=== PATIENT | female | born 1975 | race Caucasian/White ===

== ENCOUNTER 2022-05-13 07:47 | Outpatient (CLI) | payer OTHER, SELFPAY ==
--- NOTE | 2022-05-13 08:15 | CRLHL7_ITS ---
For Patients: As a result of the Century Cures Act, medical imaging exams and procedure reports are released immediately into your electronic medical record. You may view this report before your referring provider. If you have questions, please contact your health care provider. BILATERAL SCREENING MAMMOGRAM WITH COMPUTER-AIDED DETECTION AND TOMOSYNTHESIS TECHNIQUE: CC and MLO views were obtained. These mammographic images have been obtained using full-field digital technique. These mammographic images were interpreted with the benefit of computer-aided detection. Breast Tomosynthesis was used in this interpretation. COMPARISON FILM: 05/12/21, 01/02/20, 01/05/18. FINDINGS: There are scattered areas of fibroglandular density. IMPRESSION: There is no radiographic evidence for malignancy. ASSESSMENT: BI-RADS Category 2: Benign RECOMMENDATION: Routine screening mammogram in 1 year. A lay language report of this examination will be provided to the patient. Jerry Blackwood M.D. Diagnostic Radiologist [email or web address] Transcribed: 3:48 pm DW/Dictated by: Jerry Blackwood MD @ 05/13/2022 9:28:00 AM (Electronically Signed)
== END 2022-05-13 07:48 | disposition home or self-care (01) ==
LOC: MAMMO 07:48
PROVIDERS: Visit Provider Family Medicine
DX: Z12.31 Encounter for screening mammogram for malignant neoplasm of breast (principal); R92.2 Inconclusive mammogram
CPT/HCPCS: 77063; 77067

== ENCOUNTER 2023-03-14 16:46 | Outpatient (CLI) | payer OTHER, SELFPAY | END 2023-03-14 16:47 | disposition home or self-care (01) | LOC: NFLDREF 03-16 06:51 | PROVIDERS: Visit Provider Family Medicine | DX: E11.9 Type 2 diabetes mellitus without complications (principal); E88.81 Metabolic syndrome and other insulin resistance; I10 Essential (primary) hypertension; E78.5 Hyperlipidemia, unspecified; F32.A Depression, unspecified; F41.9 Anxiety disorder, unspecified; K21.9 Gastro-esophageal reflux disease without esophagitis; K85.90 Acute pancreatitis without necrosis or infection, unspecified; K76.0 Fatty (change of) liver, not elsewhere classified | CPT/HCPCS: 80053; 80061; 83690 ==

== ENCOUNTER 2023-05-02 18:35 | Emergency (ER) | payer OTHER, SELFPAY ==
[2023-05-02 18:47] VITALS: BP 131/103; PULSE 86; RESP 18; TEMP 37.1; O2SAT 98; BMI 31.5
--- NOTE | 2023-05-02 19:05 | ED_ITS ---
HPI - Abdominal Pain General Time Seen by Provider: 19:05 Date Seen: 05/02/23 Chief Complaint: Abdominal Pain Stated Complaint: Really bad menstrual cramps Time Seen by Provider: 05/02/23 18:38 Source: patient and RN notes reviewed Mode of arrival: ambulatory Limitations: no limitations History of Present Illness HPI narrative: This 48-year-old female is coming in with right-sided abdominal pain. She started with a menstrual cycle on , small amount of bleeding. She had a uterine ablation about 8 years ago. For the 1st your so she had no menstrual cycles but after that started having light bleeding and severe cramping for about 18-24 hours with her menstrual cycles. She is known to have cervical stenosis, her doctor did try to do an in office dilation which was extremely painful and did not work. She recently started on control pills to not have a menstrual cycle during her upcoming wedding in about a month. She completed 1 cycle of the pills but omitted the withdrawal. , started the back to back pills. She did have bleeding despite doing this. She also started Ozempic about 6 weeks ago and last week, 5 days ago, increase the dose to 0.5 mg weekly. She had a cholecystectomy in 2013 and suffered from chronic diarrhea since then. However, the Ozempic decreased her diarrhea to the point she became constipated this week in. She did take a laxative in Tuesday with good relief. She does not feel like she has got ongoing constipation. Her sister has had her appendix out. It is Tuesday and patient is had painful symptoms since . There has been no fevers. No nausea or vomiting. No urinary symptoms. No history of kidney stones. Related Data Previous Rx's Medication Instructions Recorded atorvastatin 20 mg tablet 20 mg PO QHS #90 tabs 03/14/23 citalopram 40 mg tablet 40 mg PO QDAY #90 tabs 03/14/23 glipizide 5 mg tablet, extended 5 mg PO QDAY #90 tabs 03/14/23 release 24 hr lisinopril 5 mg tablet 5 mg PO QDAY #90 tabs 03/14/23 omeprazole 20 mg capsule,delayed 20 mg PO BID #90 caps 03/14/23 release norgestimate-ethinyl estradiol 1 tab PO ONCE #84 tabs 03/28/23 0.18 mg/0.215mg/0.25mg-35 mcg(28)tablet (Ortho Tri-Cyclen (28)) semaglutide 0.25 mg or 0.5 mg (2 0.5 mg (0.8 mL) subcut QWEEK 4 04/25/23 mg/3 mL) subcutaneous pen injector weeks #3.2 mL (Ozempic) Allergies Allergy/AdvReac Type Severity Reaction Status Date / Time cephalexin [From Keflex] Allergy Severe Anaphylaxis Verified 04/25/23 15:41 Penicillins Allergy Severe Rash Verified 04/25/23 15:41 amoxicillin Allergy Mild Rash Verified 04/25/23 15:41 clavulanic acid Allergy Mild Abdominal Verified 04/25/23 15:41 [From Augmentin] Pain erythromycin base Allergy Unknown feel awful Verified 04/25/23 15:41 [facility] Medical History (Updated 05/02/23 @ 21:50 by Ciara Campbell MD) Mass of left breast ?N63.20 - Unspecified lump in the left breast, unspecified quadrant (ICD-10) Encounter for screening for malignant neoplasm of breast ?Z12.39 - Encounter for other screening for malignant neoplasm of breast (ICD-10) Encounter for routine history and physical examination of adult ?Z00.00 - Encounter for general adult medical examination without abnormal findings (ICD-10) Chronic streptococcal tonsillitis ?J35.01 - Chronic tonsillitis (ICD-10) ?J03.00 - Acute streptococcal tonsillitis, unspecified (ICD-10) Surgical History History of umbilical hernia repair ?Z98.890 - Other specified postprocedural states (ICD-10) ?Z87.19 - Personal history of other diseases of the digestive system (ICD-10) History of tubal ligation ?Z98.51 - Tubal ligation status (ICD-10) History of tonsillectomy ?Z90.89 - Acquired absence of other organs (ICD-10) History of pubovaginal sling ?Z96.0 - Presence of urogenital implants (ICD-10) History of endometrial ablation ?Z98.890 - Other specified postprocedural states (ICD-10) History of cholecystectomy ?Z90.49 - Acquired absence of other specified parts of digestive tract (ICD- 10) History of bunionectomy ?Z98.890 - Other specified postprocedural states (ICD-10) Family History (Updated 03/10/23 @ 09:18 by Rena Dewtit) Aunt Breast cancer Paternal Grandmother Breast cancer Ovarian cancer Social History (Updated 03/10/23 @ 09:18 by Rena Dewitt) Narrative: Has 2 children Rarely consumes alcohol Smoking Status: Current some day smoker What tobacco products do you use: cigarettes Do you use any of these nicotine containing products: None Second hand tobacco smoke exposure: No How often do you have a drink containing alcohol: monthly or less How many standard drinks containing alcohol do you have on a typical day: 1 or 2 How often do you have six or more drinks on one occasion: Never AUDIT-C Alcohol total score: 1 Non-prescribed substance use: marijuana (any form) Non-prescribed substance use details: due to pain and needing to sleep. Little interest or pleasure in doing things: not at all Feeling down, depressed, or hopeless: not at all service: No Exam Const: Vital Signs, click to edit/add: Vital Signs - 24 hr 05/02/23 18:47 05/02/23 20:20 Temperature 98.8 F Pulse Rate [Pulse Oximeter] 86 66 Respiratory Rate 18 18 Blood Pressure [Le ft Upper Arm] 131/103 H 140/91 H Pulse Oximetry 98 97 Oxygen Delivery Me thod Room Air Room Air Documenting provider has reviewed patient's vital signs: yes Common normals: no apparent distress, oriented x3, no limitations, healthy appearing, alert and well nourished General appearance: cooperative, comfortable, well kempt and well developed Nutritional appearance: overweight HENMT: Common normals: normocephalic, head/scalp atraumatic, hearing grossly normal bilaterally and external nose normal Head and scalp: normocephalic and atraumatic Face and sinus: normal facial exam Nose: external nose normal Eye: Common normals: PERRL, EOMs intact bilaterally, conjunctivae normal and no scleral icterus Conjunctiva: conjunctiva(e) normal Pupil: PERRL Neck & C-Spine: Common normals: full ROM, no lymphadenopathy, supple, no JVD and thyroid normal Thyroid: thyroid normal Resp: Common normals: normal respiratory effort, no retractions, no use of accessory muscles and clear to auscultation bilaterally Effort & inspection: able to speak in complete sentences Auscultation: clear to auscultation bilaterally Cardio: Common normals: no JVD, regular rate, regular rhythm, S1 normal heart sound, S2 normal heart sound, no gallops, no clicks and no murmurs Rate: regular rate Rhythm: regular rhythm Heart sounds: S1 normal and S2 normal GI: Common normals: Normal to inspection, nondistended, normoactive bowel sounds present, soft to palpation, no hepatosplenomegaly and no masses Palpation: soft and no hepatosplenomegaly Other: Mild tenderness more mid right sided abdomen without rebound or guarding. Neuro: Common normals: oriented x3 Sensorium/orientation: alert Psych: Appearance: well kempt Course Course Hospital Course: Patient is less likely to have ovarian issues likes this being on control. She could have retained fluid in the uterus from menstrual cycle and failed contraceptive regulation or contraceptives causing irregularities with her menstrual cycle with initiation. With cervical stenosis she certainly could be retaining fluid in the uterus causing significant pain. I have also seen was them pick cause GI symptoms and abdominal pain. Constipation is in the differential, will do flat and upright to look at that. Will get pelvic ultrasound as well. We will get baseline labs. I do think this is less likely appendicitis given the time frame of her symptoms in the length of her symptoms but will still consider that. She understands we may need to proceed with CT abdominal imaging. Will try some Toradol to see if this helps for pain management. Reevaluation(s) Time of Reevaluation #1: 21:45 Reevaluation #1: Reviewed with patient that her ultrasound is showing probable adenomyosis which she could have significant pain with menses with this. Recommend follow up with OB Gyne. We did review that there was constipation on the abdominal x-ray. Labs are reassuring. At this time, will discharge to home. She felt the Toradol worked very good for her cramps. We can have her try some oral Toradol from [facility], 20 tabs prescribed. Vital Signs Vital signs: Initial Vital Signs Temperature 98.8 F 05/02/23 18:47 Temperature Source Temporal Artery Scan 05/02/23 18:47 Pulse Rate 86 05/02/23 18:47 Pulse Rhythm Regular 05/02/23 18:47 Respiratory Rate 18 05/02/23 18:47 Blood Pressure 131/103 H 05/02/23 18:47 Blood Pressure Mean 112 H 05/02/23 18:47 Blood Pressure Position Sitting 05/02/23 18:47 Pulse Oximetry 98 05/02/23 18:47 Oxygen Delivery Method Room Air 05/02/23 18:47 Vital Signs Temperature 98.8 F 05/02/23 18:47 Pulse Rate 86 05/02/23 18:47 Respiratory Rate 18 05/02/23 18:47 Blood Pressure 131/103 H 05/02/23 18:47 Pulse Oximetry 98 05/02/23 18:47 Oxygen Delivery Method Room Air 05/02/23 18:47 Temperature 98.8 F 05/02/23 18:47 Pulse Rate 66 05/02/23 20:20 Respiratory Rate 18 05/02/23 20:20 Blood Pressure 140/91 H 05/02/23 20:20 Pulse Oximetry 97 05/02/23 20:20 Oxygen Delivery Method Room Air 05/02/23 20:20 MDM - Abdominal Pain Lab Data Attestation: I reviewed the patient's lab results. Labs: Lab Results 05/02/23 Range/Units 19:35 WBC 8.23 (4.50-11.00) K/uL RBC 4.04 (4.00-5.20) m/uL Hgb 12.7 (12.0-16.0) gm/dL Hct 38.5 (33.0-51.0) % MCV 95 (80-100) fL MCH 31 (26-34) pg MCHC 33 (32-36) gm/dL RDW Coeff of Renetta 11.9 (11.5-15.5) % Plt Count 260 (140-440) K/uL Neut % (Auto) 63.1 (42.0-72.0) % Lymph % (Auto) 25.6 (20-44) % [place] % (Auto) 7.4 (0.0-11.0) % Eos % (Auto) 3.5 (0.0-7.0) % Baso % (Auto) 0.4 (0.0-3.0) % Neut # (Auto) 5.19 (1.7-7.0) K/uL Lymph # (Auto) 2.11 (0.90-2.90) K/uL [place] # (Auto) 0.60 (0.00-0.90) K/UL Eos # (Auto) 0.29 (0.00-0.50) K/uL Baso # (Auto) 0.03 (0.00-0.30) K/uL Abs Immat Gran (auto) 0.00 (0.00-0.30) K/uL Imm/Tot Granulo (auto) 0.0 % Sodium 136 (135-149) mmol/L Potassium 4.1 (3.6-5.1) mmol/L Chloride 106 (96-114) mmol/L Carbon Dioxide 29 (20-32) mmol/L BUN 12 (5-24) mg/dL Creatinine 0.8 (0.5-1.5) mg/dL Estimated Creat Clear 81.38 Estimated GFR 91 ml/min Glucose 143 H (60-115) mg/dL Lactate 1.0 (0.5-1.9) mmol/L Calcium 8.6 (8.4-10.6) mg/dL Total Bilirubin 0.3 (0.1-1.5) mg/dL AST 22 (12-35) U/L ALT 18 (4-35) U/L Alkaline Phosphatase 55 (40-150) U/L C-Reactive Protein 0.6 (0.5-1.0) mg/dL Total Protein 6.3 (6.0-8.3) g/dL Albumin 3.5 (3.3-5.0) g/dL Urine Color Yellow (Yellow) Urine Appearance Slightly Cloudy A (Clear) Urine pH 5.5 (5.0-8.5) Ur Specific [place] 1.020 (1.000-1.030) Urine Protein Negative (Negative) Urine Glucose (UA) Negative (Negative) Urine Ketones Negative (Negative) Urine Blood 2+ A (Negative) Urine Nitrite Negative (Negative) Urine Bilirubin Negative (Negative) Urine Urobilinogen 0.2 (0.2-1.0) Ur Leukocyte Esterase Trace A (Negative) Urine RBC 0-2 (0-2) Urine WBC 2-5 (0-5) Ur Squamous Epith Cells None (None-Few) Urine Bacteria None (None) Imaging Data Abdominal x-ray: Attestation: I have reviewed the pertinent imaging results. Radiologist's impression: Patient: [facility] Facility:?[facility] Patient ID:?[id number] Site Patient ID:?[id number]. Site :?[id number] Study:?XRay Abdomen 2 views-05/02/2023 7:52:56 PM Ordering Physician:Efren Urbina Final Report: INDICATION: Pain, constipation TECHNIQUE: Abdomen 3 view. COMPARISON: None FINDINGS: Bowel: Bowel pattern is normal. Colonic fecal retention involving the left side of the colon. Soft tissues: No sign of free air. No sign of soft tissue mass. No suspicious calcifications. Bones: Unremarkable for age. IMPRESSION: Colonic fecal retention from the left side of the colon. Dictated by Jerry Pemberton MD @ 05/02/2023 7:57:08 PM Dictated by: Jerry Pemberton MD @ 05/02/2023 19:57:15 (Electronic Signature) US pelvis: Attestation: I have reviewed the pertinent imaging results. Radiologist's impression: Patient: [facility] Facility:?[facility] Patient ID:?[id number] Site Patient ID:?[id number]. Site :?[id number] Study:?US Pelvis -05/02/2023 8:19:44 PM Ordering Physician:?Shannan Urbina Final Report: INDICATION: Right lower quadrant pain. TECHNIQUE: Ultrasound pelvis transabdominal and transvaginal utilizing grayscale, color Doppler, and spectral Doppler sonography. COMPARISON: Pelvic ultrasound 05/27/2015. FINDINGS: Uterus: Anteverted uterus measuring 9.5 x 6.5 x 6.8 cm. Heterogeneous echotex ture. No suspicious lesion. Endometrium: Endometrial stripe measures 3 mm in thickness. No endometrial polyp or mass identified. Right ovary: Measures 2.9 x 1.5 x 1.6 cm. Intact blood flow. No suspicious lesion. Left ovary: Measures 2.9 x 1.6 x 1.8 cm. Intact blood flow. No suspicious lesion. Free Fluid: Trace free fluid in the pelvic cul-de-sac. IMPRESSION: 1. No acute findings or sonographic correlate for right lower quadrant pain definitively identified. 2. Heterogeneous myometrial echogenicity is nonspecific but raises the possibility of adenomyosis. Dictated by Aaron Marino MD @ 05/02/2023 9:15:54 PM Dictated by: Aaron Marino MD @ 05/02/2023 21:15:59 (Electronic Signature) Critical Care Time Critical Care Time Critical Care Time: No Discharge Plan Discharge Clinical Impression: Dysmenorrhea, Constipation Patient Disposition: Home, Self-Care Condition: Stable Instructions: Dysmenorrhea (ED), Constipation (ED), High Fiber Diet (ED) Additional Instructions: For the cramping, this may be coming from adenomyosis. Need to follow up with OB Gyne to discuss further options. We will send you with some Toradol to treat the pain, can supplement with Tylenol while you are on this but should not use other forms of NSAIDs. For the constipation, try daily MiraLax to see if this helps while you take the Ozempic. Can use senna as needed if you are not having good stool output. At this time, would recommend starting the MiraLax daily but would probably have you take a dose of this senna tomorrow to try to help eliminate stool buildup. Activity Level: Activity as Tolerated Prescriptions: No Action atorvastatin 20 mg tablet 20 mg PO QHS Qty: 90 3RF citalopram 40 mg tablet 40 mg PO QDAY Qty: 90 3RF glipizide 5 mg tablet extended release 24hr 5 mg PO QDAY Qty: 90 3RF lisinopril 5 mg tablet 5 mg PO QDAY Qty: 90 3RF omeprazole 20 mg capsule,delayed release(DR/EC) 20 mg PO BID Qty: 90 3RF Ozempic 0.25 mg or 0.5 mg (2 mg/3 mL) pen injector 0.5 mg subcut QWEEK 28 Days Qty: 3.2 0RF norgestimate-ethinyl estradiol [Ortho Tri-Cyclen (28)] 0.18/0.215/0.25 mg-35 mcg (28) tablet 1 tab PO ONCE Qty: 84 3RF Follow Up/Referrals: Provider,Not a Local [Referring] - Stand Alone [facility]: [facility] Info Instructions
--- NOTE | 2023-05-02 19:17 | CRLHL7_ITS ---
For Patients: As a result of the Cures Act, medical imaging exams and procedure reports are released immediately into your electronic medical record. You may view this report before your referring provider. If you have questions, please contact your health care provider. INDICATION: Right lower quadrant pain. TECHNIQUE: Ultrasound pelvis transabdominal and transvaginal utilizing grayscale, color Doppler, and spectral Doppler sonography. COMPARISON: Pelvic ultrasound 05/27/2015. FINDINGS: Uterus: Anteverted uterus measuring 9.5 x 6.5 x 6.8 cm. Heterogeneous echotexture. No suspicious lesion. Endometrium: Endometrial stripe measures 3 mm in thickness. No endometrial polyp or mass identified. Right ovary: Measures 2.9 x 1.5 x 1.6 cm. Intact blood flow. No suspicious lesion. Left ovary: Measures 2.9 x 1.6 x 1.8 cm. Intact blood flow. No suspicious lesion. Free Fluid: Trace free fluid in the pelvic cul-de-sac. IMPRESSION: 1. No acute findings or sonographic correlate for right lower quadrant pain definitively identified. 2. Heterogeneous myometrial echogenicity is nonspecific but raises the possibility of adenomyosis. Dictated by Aaron Marino MD @ 05/02/2023 9:15:54 PM Dictated by: Aaron Marino MD @ 05/02/2023 21:15:59 (Electronically Signed)
--- NOTE | 2023-05-02 19:18 | CRLHL7_ITS ---
For Patients: As a result of the Century Cures Act, medical imaging exams and procedure reports are released immediately into your electronic medical record. You may view this report before your referring provider. If you have questions, please contact your health care provider. INDICATION: Pain, constipation TECHNIQUE: Abdomen 3 view. COMPARISON: None FINDINGS: Bowel: Bowel pattern is normal. Colonic fecal retention involving the left side of the colon. Soft tissues: No sign of free air. No sign of soft tissue mass. No suspicious calcifications. Bones: Unremarkable for age. IMPRESSION: Colonic fecal retention from the left side of the colon. Dictated by Jerry Pemberton MD @ 05/02/2023 7:57:08 PM Dictated by: Jerry Pemberton MD @ 05/02/2023 19:57:15 (Electronically Signed)
[2023-05-02] MEDS: KETOROLAC 15 MG/ML inj IVP (19:40)
[2023-05-02 19:43] LABS: Basophils Absolute Auto 0.03 K/uL (0.00-0.30); Basophils Percent Auto 0.4 % (0.0-3.0); Eosinophils Absolute Auto 0.29 K/uL (0.00-0.50); Eosinophils Percent Auto 3.5 % (0.0-7.0); Hematocrit 38.5 % (33.0-51.0); Hemoglobin* 12.7 gm/dL (12.0-16.0); Lymphocytes Absolute Auto 2.11 K/uL (0.90-2.90); Lymphocytes Percent Auto 25.6 % (20-44); Mean Corpuscular HGB Conc 33 gm/dL (32-36); Mean Corpuscular Hemoglobin 31 pg (26-34); Mean Corpuscular Volume 95 fL (80-100); Monocytes Percent Auto 7.4 % (0.0-11.0); Neutrophils Absolute Auto 5.19 K/uL (1.7-7.0); Neutrophils Percent Auto 63.1 % (42.0-72.0); Platelet Count* 260 K/uL (140-440); RDW Coefficient of Variation % 11.9 % (11.5-15.5); Red Blood Count 4.04 m/uL (4.00-5.20); White Blood Count* 8.23 K/uL (4.50-11.00)
[2023-05-02 19:46] LABS: Appearance Urine Slightly Cloudy (Clear); Bilirubin Urine Negative (Negative); Blood Urine 2+ (Negative); Color Urine Yellow (Yellow); Glucose Urine Negative (Negative); Ketones Urine Negative (Negative); Leukocyte Esterase Urine Trace (Negative); Nitrite Urine Negative (Negative); Protein Urine Negative (Negative); Urobilinogen Urine 0.2 (0.2-1.0); pH Urine 5.5 (5.0-8.5)
[2023-05-02 19:52] LABS: Slide Review Reflex No
[2023-05-02 20:09] LABS: Chloride* 106 mmol/L (96-114)
[2023-05-02 20:10] LABS: Albumin* 3.5 g/dL (3.3-5.0); Potassium* 4.1 mmol/L (3.6-5.1); Sodium* 136 mmol/L (135-149)
[2023-05-02 20:12] LABS: Creatinine* 0.8 mg/dL (0.5-1.5); Est. Creatinine Clearance* 81.38; Estimated Glomerular Filt Rate 91 ml/min
[2023-05-02 20:13] LABS: Alanine Aminotransferase* 18 U/L (4-35); Alkaline Phosphatase* 55 U/L (40-150); Aspartate Amino Transferase* 22 U/L (12-35); Bilirubin Total* 0.3 mg/dL (0.1-1.5); Blood Urea Nitrogen* 12 mg/dL (5-24); Carbon Dioxide* 29 mmol/L (20-32); Glucose* 143 mg/dL (60-115); Total Protein* 6.3 g/dL (6.0-8.3)
[2023-05-02 20:14] LABS: Calcium* 8.6 mg/dL (8.4-10.6)
[2023-05-02 20:16] LABS: C Reactive Protein* 0.6 mg/dL (0.5-1.0)
[2023-05-02 20:20] VITALS: BP 140/91; PULSE 66; RESP 18; O2SAT 97
[2023-05-02 20:24] LABS: RBC Urine 0-2 (0-2)
== END 2023-05-02 21:59 | disposition home or self-care (01) ==
PROVIDERS: Emergency Provider Family Medicine; PCP Family Medicine
DX: N94.6 Dysmenorrhea, unspecified (principal); K59.00 Constipation, unspecified
CPT/HCPCS: 36415; 74019; 76830; 76856; 80053; 81001; 83605; 85025; 86140; 93976; 96374; 99284; J1885

== ENCOUNTER 2023-05-26 14:45 | Outpatient (CLI) | payer OTHER, SELFPAY ==
--- NOTE | 2023-05-26 15:00 | CRLHL7_ITS ---
For Patients: As a result of the Century Cures Act, medical imaging exams and procedure reports are released immediately into your electronic medical record. You may view this report before your referring provider. If you have questions, please contact your health care provider. BILATERAL SCREENING MAMMOGRAM WITH COMPUTER-AIDED DETECTION AND TOMOSYNTHESIS TECHNIQUE: CC and MLO views were obtained. These mammographic images have been obtained using full-field digital technique. These mammographic images were interpreted with the benefit of computer-aided detection. Breast Tomosynthesis was used in this interpretation. COMPARISON FILM: 05/13/22, 05/12/21, 01/02/20. FINDINGS: There are scattered areas of fibroglandular density IMPRESSION: There is no radiographic evidence for malignancy. ASSESSMENT: BI-RADS Category 1: Negative RECOMMENDATION: Routine screening mammogram in 1 year. A lay language report of this examination will be provided to the patient. Jerry Blackwood M.D. Diagnostic Radiologist [email or web address] ROM/Dictated by: Jerry Blackwood MD @ 06/02/2023 11:12:00 AM (Electronically Signed)
== END 2023-05-26 14:46 | disposition home or self-care (01) ==
LOC: MAMMO 14:46
PROVIDERS: PCP Family Medicine; Visit Provider Family Medicine
DX: Z12.31 Encounter for screening mammogram for malignant neoplasm of breast (principal)
CPT/HCPCS: 77063; 77067

== ENCOUNTER 2023-07-04 16:09 | Outpatient (CLI) | payer OTHER, SELFPAY | END 2023-07-04 16:10 | disposition home or self-care (01) | PROVIDERS: PCP Family Medicine; Visit Provider Family Medicine | DX: Z00.00 Encounter for general adult medical examination without abnormal findings (principal); E11.9 Type 2 diabetes mellitus without complications; I10 Essential (primary) hypertension; L40.9 Psoriasis, unspecified; F41.9 Anxiety disorder, unspecified | CPT/HCPCS: 80053; 82043; 82150; 82570; 83690 ==

== ENCOUNTER 2023-12-23 07:40 | Outpatient (CLI) | payer OTHER, SELFPAY ==
--- NOTE | 2023-12-23 08:12 | W.ANESCHARGE ---
Anesthesia Charges Start Date/Time Anesthesia Start Date: 12/23/23 Anesthesia Start Time: 08:31 Stop Date/Time Anesthesia Stop Date: 12/23/23 Anesthesia Stop Time: 08:56
--- NOTE | 2023-12-23 08:59 | W.ANESCHARGE ---
Anesthesia Charges Start Date/Time Anesthesia Start Date: 12/23/23 Anesthesia Start Time: 08:31 Stop Date/Time Anesthesia Stop Date: 12/23/23 Anesthesia Stop Time: 08:56
== END 2023-12-23 07:41 | disposition home or self-care (01) ==
LOC: OP CLINIC 07:41
PROVIDERS: PCP Family Medicine; Visit Provider Internal Medicine
DX: Z12.11 Encounter for screening for malignant neoplasm of colon (principal); K63.5 Polyp of colon; K57.30 Diverticulosis of large intestine without perforation or abscess without bleeding
CPT/HCPCS: 00811; 45380; 88305; J2704

== ENCOUNTER 2024-05-31 10:39 | Outpatient (CLI) | payer OTHER, SELFPAY | END 2024-05-31 10:40 | disposition home or self-care (01) | LOC: NFLDREF 06-01 13:07 | PROVIDERS: PCP Emergency Medicine; Referring Provider Emergency Medicine; Visit Provider Emergency Medicine | DX: E78.5 Hyperlipidemia, unspecified (principal); E11.65 Type 2 diabetes mellitus with hyperglycemia | CPT/HCPCS: 80053; 80061 ==

== ENCOUNTER 2024-09-24 15:08 | Outpatient (CLI) | payer OTHER, SELFPAY ==
--- NOTE | 2024-09-24 15:30 | CRLHL7_ITS ---
For Patients: As a result of the Century Cures Act, medical imaging exams and procedure reports are released immediately into your electronic medical record. You may view this report before your referring provider. If you have questions, please contact your health care provider. INDICATION: Headaches. Nausea and vomiting TECHNIQUE: Non-contrast sagittal T1, axial FLAIR, FSE T2, DWI, posterior fossa CISS images provided. Supplemental post contrast T1 weighted axial and coronal high resolution images through the posterior fossa with fat saturation and post contrast whole head axial T1 weighted images submitted. No comparisons. 15 cc of dotarem gadolinium was administered intravenously. FINDINGS: The ventricles, sulci and gyri are of normal size, shape and contour for age. Midline structures are centrally located. No convincing evidence of suspicious intra- or extra-axial fluid collections. No regions of restricted diffusion. Expected flow-voids within the cavernous carotids and basilar artery. No suspicious masses within the internal auditory canals. No suspicious regions of abnormal parenchymal enhancement. IMPRESSION: 1. No radiographic evidence of acute intracranial abnormalities. Dictated by Russ Tam MD @ 09/24/2024 5:02:18 PM (Electronically Signed)
== END 2024-09-24 15:09 | disposition home or self-care (01) ==
LOC: MRI 15:09
PROVIDERS: PCP Emergency Medicine; Visit Provider Physician Assistant Medical
DX: R51.9 Headache, unspecified (principal); R11.2 Nausea with vomiting, unspecified
CPT/HCPCS: 70553; A9575

== ENCOUNTER 2024-10-17 14:44 | Outpatient (CLI) | payer BC, SELFPAY | END 2024-10-17 14:45 | disposition home or self-care (01) | LOC: LKVREF 14:44 | PROVIDERS: PCP Emergency Medicine; Visit Provider Otolaryngology | DX: G25.81 Restless legs syndrome (principal) | CPT/HCPCS: 82728 ==

== ENCOUNTER 2024-11-12 18:07 | Outpatient (CLI) | payer BC, SELFPAY ==
--- NOTE | 2024-11-20 12:45 | W.PM.SLEEP ---
Sleep Study Details Details Interpreting Provider: Blanco Date of Sleep Study: 11/12/24 Sleep Study Details: STUDY TYPE:? Home unattended ? BMI:? 27.8 ORDERING PROVIDER:Varinder Simeon INDICATION:? Concern for sleep appy ? SLEEP SUMMARY:? 455 minutes monitored RESPIRATORY SUMMARY:? AHI 5.1 Low oxygen 89 Snoring 55.2% PERIODIC LIMB MOVEMENTS OF SLEEP:? Not recorded CARDIAC:? Range 61-99, mean 74.8 beats per minute IMPRESSION:? Mild obstructive sleep apnea RECOMMENDATION: Treatment options include CPAP, dental appliance and/or airway expansion surgery.
== END 2024-11-12 18:08 | disposition home or self-care (01) ==
LOC: SLEEP 18:08
PROVIDERS: PCP Emergency Medicine; Visit Provider Otolaryngology
DX: G47.33 Obstructive sleep apnea (adult) (pediatric) (principal)
CPT/HCPCS: 95806